=== PATIENT | male | born 1985 ===

== ENCOUNTER 2024-11-29 14:52 | Outpatient (REF) | payer MEDICAID, SELFPAY | END 2024-11-29 14:53 | disposition home or self-care (01) | LOC: HO.SH 14:52 | PROVIDERS: Visit Provider Physician Assistant | DX: Z01.118 Encounter for examination of ears and hearing with other abnormal findings (principal); H90.41 Sensorineural hearing loss, unilateral, right ear, with unrestricted hearing on the contralateral side | CPT/HCPCS: 92557; 92567 ==